=== PATIENT | female | born 1980 | race Caucasian/White ===

== ENCOUNTER 2021-01-20 18:05 | Emergency (ER) | payer BC ==
[~2021-01-20] VITALS: Ht 160 cm; Wt 75.0 kg
[2021-01-20] MEDS ORDERED: THIAMINE INJ 100 MG in IV DEXTROSE 5% 50 ML IV ONE (19:00)
[2021-01-20] MEDS ORDERED: MULTIVIT INFUSN,ADULT 4,VIT K 10 ML, THIAMINE INJ 100 MG, FOLIC ACID INJ 1 MG in IV NOR... IV ONE (19:00)
[2021-01-20 19:03] LABS: BILIRUBIN,URINE NEGATIVE (NEG); CLARITY,URINE CLEAR; COLOR,URINE YELLOW; NITRITE,URINE NEGATIVE (NEG); PROTEIN,URINE NEGATIVE (NEG-TRACE); UROBILINOGEN,URINE 0.2 mg/dL (0.2 mg/dL)
[2021-01-20 19:07] LABS: BASO # 0.1 x10^3/uL (0.0-0.2); BASO % 2 % (0-3); EOS # 0.3 x10^3/uL (0.0-0.7); EOS % 3 % (0-3); HEMATOCRIT 41.3 % (36.0-47.0); LYMPH # 2.8 x10^3/uL (1.0-4.8); LYMPH % 31 % (24-48); MEAN CORPUSCULAR HEMOGLOBIN 34 pg (25-35); MEAN CORPUSCULAR HGB CONC 34 g/dL (31-37); MEAN CORPUSCULAR VOLUME 100 fL (79-100); MONO # 0.6 x10^3/uL (0.0-1.1); MONO % 7 % (0-9); NEUT # 5.2 x10^3/uL (1.8-7.7); NEUT % 58 % (31-73); PLATELET COUNT 339 x10^3/uL (140-400); RED BLOOD COUNT 4.14 x10^6/uL (3.50-5.40); RED CELL DISTRIBUTION WIDTH 14.5 % (11.5-14.5)
[2021-01-20 19:09] LABS: U PREG PATIENT NEGATIVE (NEG)
--- NOTE | 2021-01-20 19:09 | PHYS DOC ---
Past Medical History Past Medical History: Anxiety, Depression, GERD, Hypertension, Other Additional Past Medical Histor: NEUROPATHY Past Surgical History: Hysterectomy Smoking Status: Current Every Day Smoker Alcohol Use: Heavy Additional Information: REPORTS 'HEAVY' ALCOHOL X1 YEAR Social History Narrative: DENIES CURRENTLY General Adult EDM: Chief Complaint: ALCOHOL INTOXICATION HPI: HPI: Patient is a 40 year old female who was brought here by EMS from home due to alcohol intoxication. Patient says she drinks heavily every day about half a liter of vodka a day. She had been drinking heavily for about a year now. Patient feels depressed but denies suicidal ideation. Her family could not wake her up today so EMS were called to take her here for evaluation. Patient denies any headache, no chest pain, no abdominal pain, no nausea vomiting. Patient denies suicidal ideation denies emotional ideation. She is interested in detox. Review of Systems: Review of Systems: Constitutional: Denies fever or chills. [] Eyes: Denies change in visual acuity. [] HENT: Denies nasal congestion or sore throat. [] Respiratory: Denies cough or shortness of breath. [] Cardiovascular: Denies chest pain or edema. [] GI: Denies abdominal pain, nausea, vomiting, bloody stools or diarrhea. [] : Denies dysuria. [] Musculoskeletal: Denies back pain or joint pain. [] Integument: Denies rash. [] Neurologic: Denies headache, focal weakness or sensory changes. [] Endocrine: Denies polyuria or polydipsia. [] Lymphatic: Denies swollen glands. [] Psychiatric: Positive for depression, denied suicidal ideation, denied homicidal ideation. Heart Score: C/O Chest Pain: N/A Risk Factors: Risk Factors: DM, Current or recent (<one month) smoker, HTN, HLP, family history of CAD, obesity. Risk Scores: Score 0 - 3: 2.5% MACE over next 6 weeks - Discharge Home Score 4 - 6: 20.3% MACE over next 6 weeks - Admit for Clinical Observation Score 7 - 10: 72.7% MACE over next 6 weeks - Early Invasive Strategies Current Medications: Current Medications Medications (Trade) Dose Ordered Sig/Mohan Start Time Stop Time Status Last Admin Dose Admin Multivitamins 10 ml/Thiamine HCl 100 mg/Folic Acid 1 mg/Sodium Chloride 1,011.2 ml @ 1,000.088 mls/hr 1X ONCE 01/20/21 19:00 01/20/21 20:00 Thiamine HCl 100 mg/Dextrose 51 ml @ 102 mls/hr 1X ONCE 01/20/21 19:00 01/20/21 19:29 Cancel Allergies: Allergies: Allergies Coded Allergies Type Severity Reaction Last Updated Verified erythromycin base Allergy Intermediate Unknown 01/20/21 Yes Physical Exam: PE: Constitutional: Well developed, well nourished, no acute distress, non-toxic appearance. [] HENT: Normocephalic, atraumatic, bilateral external ears normal, oropharynx moist, no oral exudates, nose normal. [] Eyes: PERRLA, EOMI, conjunctiva normal, no discharge. [] Neck: Normal range of motion, no tenderness, supple, no stridor. [] Cardiovascular:Heart rate regular rhythm, no murmur [] Lungs & Thorax: Bilateral breath sounds clear to auscultation [] Abdomen: Bowel sounds normal, soft, no tenderness, no masses, no pulsatile masses. [] Skin: Warm, dry, no erythema, no rash. [] Back: No tenderness, no CVA tenderness. [] Extremities: No tenderness, no cyanosis, no clubbing, ROM intact, no edema. [] Neurologic: Alert and oriented X 3, normal motor function, normal sensory function, no focal deficits noted. [] Psychologic: Affect normal, judgement normal, mood normal. [] Current Patient Data: Labs: Laboratory Tests Test 01/20/21 18:21 01/20/21 18:50 01/20/21 22:45 White Blood Count 9.0 x10^3/uL Red Blood Count 4.14 x10^6/uL Hemoglobin 14.0 g/dL Hematocrit 41.3 % Mean Corpuscular Volume 100 fL Mean Corpuscular Hemoglobin 34 pg Mean Corpuscular Hemoglobin Concent 34 g/dL Red Cell Distribution Width 14.5 % Platelet Count 339 x10^3/uL Neutrophils (%) (Auto) 58 % Lymphocytes (%) (Auto) 31 % Monocytes (%) (Auto) 7 % Eosinophils (%) (Auto) 3 % Basophils (%) (Auto) 2 % Neutrophils # (Auto) 5.2 x10^3/uL Lymphocytes # (Auto) 2.8 x10^3/uL Monocytes # (Auto) 0.6 x10^3/uL Eosinophils # (Auto) 0.3 x10^3/uL Basophils # (Auto) 0.1 x10^3/uL Sodium Level 146 mmol/L Potassium Level 3.7 mmol/L Chloride Level 106 mmol/L Carbon Dioxide Level 28 mmol/L Anion Gap 12 Blood Urea Nitrogen 7 mg/dL Creatinine 0.7 mg/dL Estimated GFR (Cockcroft-Gault) 93.6 BUN/Creatinine Ratio 10 Glucose Level 88 mg/dL Calcium Level 8.4 mg/dL Magnesium Level 2.2 mg/dL Total Bilirubin 0.2 mg/dL Aspartate Amino Transf (AST/SGOT) 40 U/L Alanine Aminotransferase (ALT/SGPT) 43 U/L Alkaline Phosphatase 82 U/L Total Protein 6.3 g/dL Albumin 3.4 g/dL Albumin/Globulin Ratio 1.2 Salicylates Level 4.5 mg/dL Salicylate Last Dose Date Unknown Salicylate Last Dose Time Unknown Acetaminophen Level < 2.0 mcg/ml Acetaminophen Last Dose Date Unknown Acetaminophen Last Dose Time Unknown Ethyl Alcohol Level 401 mg/dL 246 mg/dL Urine Collection Type Unknown Urine Color Yellow Urine Clarity Clear Urine pH 6.0 Urine Specific [place] <=1.005 Urine Protein Negative mg/dL Urine Glucose (UA) Negative mg/dL Urine Ketones (Stick) Negative mg/dL Urine Blood Negative Urine Nitrite Negative Urine Bilirubin Negative Urine Urobilinogen Dipstick 0.2 mg/dL Urine Leukocyte Esterase Negative Urine RBC 0 /HPF Urine WBC Occ /HPF Urine Squamous Epithelial Cells Mod /LPF Urine Bacteria 0 /HPF Urine Test Negative Urine Opiates Screen Neg Urine Methadone Screen Neg Urine Barbiturates Neg Urine Phencyclidine Screen Neg Urine Amphetamine/Methamphetamine Neg Urine Benzodiazepines Screen Neg Urine Cocaine Screen Neg Urine Cannabinoids Screen Neg Urine Ethyl Alcohol Pos Current Medications Medications (Trade) Dose Ordered Sig/Mohan Route PRN Reason Start Time Stop Time Status Last Admin Dose Admin Thiamine HCl 100 mg/Dextrose 51 ml @ 102 mls/hr 1X ONCE IV 01/20/21 19:00 01/20/21 19:29 Cancel Multivitamins 10 ml/Thiamine HCl 100 mg/Folic Acid 1 mg/Sodium Chloride 1,011.2 ml @ 1,000.088 mls/hr 1X ONCE IV 01/20/21 19:00 4/27/21 20:00 DC 01/20/21 19:30 Sodium Chloride 1,000 ml @ 1,000 mls/hr 1X ONCE IV 01/20/21 20:30 01/20/21 21:29 DC 01/20/21 21:02 Venlafaxine HCl (Effexor) 75 mg 1X ONCE PO 01/20/21 23:00 01/20/21 23:01 DC 01/20/21 23:12 Gabapentin (Neurontin) 600 mg 1X ONCE PO 01/20/21 23:00 01/20/21 23:01 DC 01/20/21 23:12 Vital Signs: Vital Signs Date Time Temp Pulse Resp B/P (MAP) Pulse Ox O2 Delivery O2 Flow Rate FiO2 01/20/21 18:30 90 18 137/88 (104) 94 Room Air 01/20/21 18:05 97.9 97.9 EKG: EKG: [] Radiology/Procedures: Radiology/Procedures: [] Course & Med Decision Making: Course & Med Decision Making Pertinent Labs and Imaging studies reviewed. (See chart for details) Patient is a 40-year-old female who was brought here by EMS from home due to alcohol intoxication. Patient admitted to abusing alcohol, her alcohol level was elevated in a day. Patient has been observed here 7 hours here already. She is medically clearly for detox treatment at this time. Vlad Disclaimer: Vlad Disclaimer: This electronic medical record was generated, in whole or in part, using a voice recognition dictation system. Departure Departure Impression: Primary Impression: Alcohol abuse Additional Impression: Alcohol intoxication Disposition: [address] [place] [address] (Transferred to [facility] in [place], accepted by Dr. Escalante.) Condition: IMPROVED Referrals: UNKNOWN PCP NAME (PCP) DOLLY PELLETIER DO Jan 20, 2021 19:09
[2021-01-20 19:11] LABS: BACTERIA,URINE 0 /HPF (0-FEW); RBC,URINE 0 /HPF (0-2); WBC,URINE OCC /HPF (0-4)
[2021-01-20 19:13] LABS: BARBITURATES NEG (NEG); BENZODIAZEPINES NEG (NEG); CANNABINOIDS NEG (NEG); COCAINE NEG (NEG); METHADONE NEG (NEG); OPIATES NEG (NEG); PHENCYCLIDINE NEG (NEG)
[2021-01-20 19:21] LABS: CALCIUM 8.4 mg/dL (8.5-10.1); CREATININE 0.7 mg/dL (0.6-1.0); GFR 93.6; POTASSIUM 3.7 mmol/L (3.5-5.1)
[2021-01-20 19:26] LABS: ALBUMIN 3.4 g/dL (3.4-5.0); ALBUMIN/GLOBULIN RATIO 1.2 (1.0-1.7); MAGNESIUM 2.2 mg/dL (1.8-2.4); TOTAL BILIRUBIN 0.2 mg/dL (0.2-1.0); TOTAL PROTEIN 6.3 g/dL (6.4-8.2)
[2021-01-20 19:31] LABS: AMPHETAMINE/METHAMPHETAMINE NEG (NEG)
[2021-01-20 19:38] LABS: SALIC 4.5 mg/dL (2.8-20.0)
[2021-01-20 19:40] LABS: ACETAMIN < 2.0 mcg/ml (10-30); ETHANOL 401 mg/dL (0-10)
[2021-01-20] MEDS ORDERED: IV NORMAL SALINE 1000ML BAG 1,000 ML IV ONE (20:30)
[2021-01-20] MEDS ORDERED: GABAPENTIN 300 MG CAPSULE. PO ONE (23:00)
[2021-01-20] MEDS ORDERED: VENLAFAXINE 75 MG TABLET. PO ONE (23:00)
[2021-01-21 02:12] VITALS: BP 143/95
== END 2021-01-21 02:42 ==
LOC: ER 18:05
DX: F10.229 Alcohol dependence with intoxication, unspecified (principal); F41.9 Anxiety disorder, unspecified; F32.9 Major depressive disorder, single episode, unspecified; Z20.822 Contact with and (suspected) exposure to COVID-19; K21.9 Gastro-esophageal reflux disease without esophagitis; I10 Essential (primary) hypertension; F17.200 Nicotine dependence, unspecified, uncomplicated; Z90.710 Acquired absence of both cervix and uterus; Z88.1 Allergy status to other antibiotic agents
CPT/HCPCS: 36415; 80053; 80307; 80329; 81001; 81025; 83735; 85025; 96365; 96366; 99285; G0480; J3411; J3490; J7030; U0003; U0005